=== PATIENT | male | born 1965 | race Caucasian/White ===

== ENCOUNTER 2017-07-12 09:30 | Outpatient (CLI) | payer MEDICARE, MEDICAID ==
--- NOTE | 2017-07-12 12:09 | RAD ---
LEFT KNEE 4 VIEWS: HISTORY: A 52-year-old male with left knee pain and swelling for the last month. COMPARISON: 04/22/17. FINDINGS: Evidence for minimal increased density in the suprapatellar recess. Small bony or calcific linear de nsity posterior to the knee joint region, possibly a small intraarticular body. This is associated w ith some cortical irregularity of the posterior tibial plateau as seen on lateral view. Further eval uation with an MRI is recommended. IMPRESSION: Possible small intraarticular body with some cortical irregularity of the posterior proximal tibial p lateau region as seen on the lateral view with some increased density in the suprapatellar recess, ev idence for some joint effusion. There does appear to be some patchy bone demineralization including the distal femur and patella. Followup MRI is recommended for further assessment. POS: TPC
== END 2017-07-12 09:31 | disposition home or self-care (01) ==
LOC: SCSRAD 09:30
PROVIDERS: ATTEND Nurse Practitioner Family
DX: M25.562 Pain in left knee (principal); M85.80 Other specified disorders of bone density and structure, unspecified site

== ENCOUNTER 2019-12-29 02:22 | Inpatient (IN) | payer MEDICARE, MEDICAID ==
[2019-12-29] MEDS ORDERED: Norepinephrine 4 MG/4 ML VIAL ONE (02:58)
[2019-12-29] MEDS ORDERED: Heparin 10,000 UNITS/1 ML VIAL ONE (03:14)
[2019-12-29] MEDS ORDERED: Clopidogrel Bisulfate 300 MG TAB ONE (03:43)
[2019-12-29] MEDS ORDERED: Midazolam HCl 2 mg/2 ml Vial ONE ×2 (03:48→04:02)
[2019-12-29] MEDS ORDERED: PROPOFOL 20 ML ONE (03:49)
--- NOTE | 2019-12-29 03:52 | HP ---
INDICATION FOR ADMISSION: This is a 54-year-old gentleman with acute what appears to be lateral myocardial infarction, ST-segment elevation. HISTORY OF PRESENT ILLNESS: This is a 54-year-old gentleman who has a history of seizure at age 6 to 7 years old has been doing very well since that time, had no further seizures. He is mentally challenged. He is being taken care of by his sister and around 1130 last night, he awoke with chest pain, had nausea and vomiting. His [id number] took him to the hospital, and while in the hospital, he had another seizure apparently, he aspirated, and then went into ventricular fibrillation, required CPR resuscitation, was started on dopamine, and he also was given I believe, Versed as well as Ativan, was intubated and transferred to our facility. He did have an echocardiogram in 2013 which was normal. There is no prior history of coronary artery disease or cardiac problems in the past. At this time, his EKG as he has been stabilized shows a right-bundle branch block with some nonspecific EKG changes inferiorly. Previously, he did have some ST-segment elevation in lead I and aVL. His laboratory data is relatively unremarkable for any acute OR at this time. PAST MEDICAL HISTORY: Significant for: 1. Seizure disorder. 2. Mental retardation. 3. Hypertension. 4. Hypercholesterolemia. 5. Hypertriglyceridemia. 6. Gastroesophageal reflux disease. 7. He did have an episode of acute renal failure in the past, which has resolved. This was due to his dehydration, and I believe abdominal problems. SOCIAL HISTORY: He lives with sister. He has no alcohol or tobacco abuse. FAMILY HISTORY: Unknown. He is adopted. ALLERGIES: NONE. MEDICATIONS: At home include: 1. Lisinopril. 2. Lipitor. 3. Amlodipine. 4. Aspirin. REVIEW OF SYSTEMS: Not obtainable, but his sister says he has not been complaining of anything, was doing very well, he goes outside, remains active until the episode last night. PHYSICAL EXAMINATION: GENERAL: Reveals a middle-aged gentleman, who is on the ventilator at this time , is unresponsive. VITAL SIGNS: His blood pressure was 85/55, heart rate is at this time 98, shows a right bundle-branch block. HEENT: Shows the head to be normocephalic and atraumatic. He does have an ET tube in place. CHEST: Actually clear to auscultation anteriorly. CARDIOVASCULAR: I did not hear any significant murmurs, heaves, thrills, bruits , or rubs. ABDOMEN: Exam was unremarkable. EXTREMITIES: Show no clubbing, cyanosis, or edema. Pulses are present, somewhat decreased due to hypotension. He has an IO catheter in the left shoulder area. LABORATORY DATA: Shows a hemoglobin of 15.3, WBC of 13.2, platelet count is 329,000. Sodium is 134, potassium 4.3, bicarb is 19, chloride 100, BUN 16, creatinine 1.38, blood sugar was 153. Troponin I is 0.028. AST was 39. An EKG most recently shows a right-bundle branch block with some nonspecific inferior lateral changes. IMPRESSION: 1. Acute, most likely lateral myocardial infarction in a patient who aspirated this evening and then also had ventricular fibrillation and required resuscitation in the emergency room in [place], has been transferred to our facility. He has been taken emergently to the cardiac r&d lab technician for evaluation of the coronary arteries. 2. History of hypertension. He has been on lisinopril and amlodipine. Blood pressure at this time obviously is low, most likely due to myocardial infarction. 3. History of hypertriglyceridemia and hypercholesterolemia. He will continue the Lipitor after the procedure likely. Based on urgency of the situation, we will proceed with cardiac catheterization for evaluation of coronary status, certainly in view of his episode of ventricular fibrillation. Job ID: [id number] MTDD
[2019-12-29] MEDS ORDERED: Fentanyl 100 MCG/2 ML VIAL ONE (04:02)
[2019-12-29] MEDS ORDERED: Ketamine 50 MG/ML (10ML VIAL) ONE (04:03)
[2019-12-29] MEDS ORDERED: Propofol 500 MG/50 ML VIAL ONE (04:03)
[2019-12-29] MEDS ORDERED: Zolpidem Tartrate 5 MG TAB PO PRN (04:35)
[2019-12-29] MEDS ORDERED: Acetaminophen/Codeine 30-300mg Tablet PO PRN (04:35)
[2019-12-29] MEDS ORDERED: Milk Of Magnesia 30 ML UDCUP PO PRN (04:35)
[2019-12-29] MEDS ORDERED: Mag-Al 1200 mg/1200 mg/30 ML UDCUP PO PRN (04:35)
[2019-12-29] MEDS ORDERED: Nitroglycerin 0.4 MG TAB (25 Tab Bottle) SL PRN (04:35)
[2019-12-29] MEDS ORDERED: Clopidogrel Bisulfate 300 MG TAB PO SCH (04:45)
[2019-12-29 05:03] LABS: Actual Bicarbonate (HCO3a) 14.1 mEq/L (22-28); Base Excess (BEa) -14.8 mEq/L (-2.0 to +3.0); CO2 Tension 44.1 mmHg (35.0-45.0); Calcium, Ionized (arterial) 0.99 mmol/L (1.12-1.30); Carboxyhemoglobin (COHb) 0.2 gm% (0.0-3.0); Hemoglobin (Hb) 13.4 g/dL (14.0-18.0); O2 Tension (PaO2), arterial 138.9 mmHg (80.0-100.0); Potassium - ABG Lab 4.02 mmol/L (3.70-5.30)
[2019-12-29] MEDS ORDERED: Fentanyl BOLUS 250 ML IVPB PRN (05:15)
[2019-12-29] MEDS ORDERED: Sodium Bicarb 50 MEQ/50 ML Abboject 8.4% SYRINGE IVP SCH (05:15)
[2019-12-29] MEDS ORDERED: DISCONTINUE PREVIOUS NARCOTIC PAIN MEDICATIONS AND BENZODIAZEPINES FS SCH (05:15)
[2019-12-29] MEDS ORDERED: Morphine 2 MG/ML SYRINGE SLOW IVP PRN (05:15)
[2019-12-29] MEDS ORDERED: Propofol BOLUS 1,000 MG/100 ML VIAL IV PRN (05:15)
[2019-12-29] MEDS ORDERED: fentaNYL Citrate/PF 2,000 MCG in Sodium Chloride 0.9% 60 ML IV SCH (05:15)
[2019-12-29] MEDS ORDERED: Phenylephrine 0.25% Nasal Spray 15 ML BOT EA NARE PRN (05:16)
[2019-12-29 05:34] LABS: ALV-art Gradient 518.975 (0-20); Puncture Site LINE; pH, Arterial 7.12 (7.35-7.45)
[2019-12-29] MEDS: Sodium Chloride 0.9% 1,000 ML IV SCH ×2 (05:54→17:24)
[2019-12-29] MEDS: Propofol 1,000 MG/100 ML VIAL IV PRN ×4 (05:57→18:50)
[2019-12-29] MEDS ORDERED: methylPREDNISolone Sod Succ 40 MG VIAL IVP SCH (06:00)
--- NOTE | 2019-12-29 06:26 | PDOC.HOSPP ---
- Subjective Encounter Date: 12/29/19 Encounter Time: 06:00 Subjective: on vent, is sedated on propofol Hospitalist ROS - Review of Systems ROS unobtainable: due to endotracheal tube - Medication Medications: Active Medications Generic Name Dose Route Start Last Admin Trade Name Freq PRN Reason Stop Dose Admin Sodium Chloride 1,000 mls @ 100 mls/hr 12/29/19 04:45 12/29/19 05:54 Normal Saline 0.9% IV 1,000 mls .Q10H LEON Administration Propofol 1,000 mg 12/29/19 05:15 12/29/19 05:57 Diprivan IV 01/28/20 05:15 1,000 mg INF PRN Administration TO ACHIEVE GOAL RASS Protocol - Exam General Appearance: ill appearing Eye: PERRL, anicteric sclera ENT: no oropharyngeal lesions, dry oral mucosa Neck: supple, no JVD Heart: RRR, no murmur Respiratory: no wheezes, no rales, rhonchi Gastrointestinal: soft, non-tender, non-distended, normal bowel sounds Extremities: no cyanosis, no edema Neurological: cranial nerve grossly intact, no focal deficits Hosp A/P (1) STEMI (ST elevation myocardial infarction) Status: Acute Qualifiers: Involved coronary artery: LAD coronary artery Qualified Code(s): I21.02 - ST elevation (STEMI) myocardial infarction involving left anterior descending coronary artery (2) Acute respiratory failure with hypoxia and hypercapnia Code(s): J96.01 - ACUTE RESPIRATORY FAILURE WITH HYPOXIA; J96.02 - ACUTE RESPIRATORY FAILURE WITH HYPERCAPNIA Status: Acute (3) Seizure disorder Code(s): G40.909 - EPILEPSY, UNSP, NOT INTRACTABLE, WITHOUT STATUS EPILEPTICUS Status: Acute (4) Aspiration pneumonia Code(s): J69.0 - PNEUMONITIS DUE TO INHALATION OF FOOD AND VOMIT Status: Acute Qualifiers: Aspiration pneumonia type: due to regurgitated food Laterality: bilateral (5) Intellectual disability Code(s): F79 - UNSPECIFIED INTELLECTUAL DISABILITIES Status: Chronic (6) Hypothyroidism Code(s): E03.9 - HYPOTHYROIDISM, UNSPECIFIED Status: Chronic Qualifiers: Hypothyroidism type: unspecified Qualified Code(s): E03.9 - Hypothyroidism , unspecified (7) Dyslipidemia Code(s): E78.5 - HYPERLIPIDEMIA, UNSPECIFIED Status: Chronic (8) ZO (acute kidney injury) Code(s): N17.9 - ACUTE KIDNEY FAILURE, UNSPECIFIED Status: Acute - Plan Likely sequence of events per , initially had a seizure, then aspirated, vfib, cpr initiated, cath with stent x2. currently on vent, rate is set at 20/min, tidal volume 500 Had stent to LAD and circumflex is on dopamine and levophed for pressure support, sbp around 110 now (may wean and dc levophed) still has sheath in his right groin, central line on asp, plavix, low dose coreg and lisinopril if BP permits has severe resp acidosis hemostable for now POA is sister is on levaquin, steroids, nebs will add keppra if he gets another seizure, seizure precautions Pulmonary, neurology consultations. May need MRI with contrast when creatinine is stable and extubated for new onset seizure (previous seizure was in his childhood) will f/u
[2019-12-29 06:38] LABS: Base Excess (BEa) -9.6 mEq/L (-2.0 to +3.0); CO2 Tension 34.3 mmHg (35.0-45.0); Calcium, Ionized (arterial) 0.98 mmol/L (1.12-1.30); Carboxyhemoglobin (COHb) 0.5 gm% (0.0-3.0); Hemoglobin (Hb) 13.9 g/dL (14.0-18.0); O2 Tension (PaO2), arterial 60.5 mmHg (80.0-100.0); Potassium - ABG Lab 4.16 mmol/L (3.70-5.30); pH, Arterial 7.29 (7.35-7.45)
[2019-12-29 06:40] LABS: ALV-art Gradient 253.125 (0-20); Puncture Site ALINE
[2019-12-29] MEDS: Levothyroxine Sodium 25 MCG TAB PO SCH (06:48)
[2019-12-29 07:05] LABS: Anion Gap 20 mmol/L (10-20); BUN (Urea Nitrogen) 15 mg/dL (8.4-25.7); Calc. Creatinine Clearance 0 mL/min (70-130); Calcium 7.4 mg/dL (7.8-10.44); Carbon Dioxide 15 mmol/L (22-29); Chloride 103 mmol/L (98-107); Estimated GFR-MDRD 49; Glucose 409 mg/dL (70-105); Potassium 4.1 mmol/L (3.5-5.1); Sodium 134 mmol/L (136-145)
[2019-12-29 07:28] LABS: Troponin I 118.601 ng/mL (< 0.028)
[2019-12-29 07:34] VITALS: BMI 23.1
[2019-12-29] MEDS ORDERED: HumaLOG 300 UNITS/3 ML VIAL SC PRN (07:58)
[2019-12-29] MEDS ORDERED: Dextrose 5% in Water 1,000 ML IV PRN (07:58)
[2019-12-29] MEDS ORDERED: Dextrose 50% Abboject 50 ML SYRINGE SLOW IVP PRN (07:58)
[2019-12-29] MEDS ORDERED: Norepinephrine 8 MG/0.9% NS 250 ML IVPB SCH (08:15)
[2019-12-29] MEDS ORDERED: DOPamine 400 MG/D5W 250 ML 250 ML IVPB SCH (08:15)
[2019-12-29] MEDS: Clopidogrel Bisulfate 75 MG TAB PO SCH (09:00)
[2019-12-29] MEDS: Aspirin Chewable 81 MG TAB PO SCH (09:00)
[2019-12-29] MEDS: Carvedilol 3.125 MG TAB PO SCH ×2 (09:01→17:23)
[2019-12-29] MEDS: Lisinopril 2.5 MG TAB PO SCH (09:01)
[2019-12-29 09:51] LABS: Troponin I 124.867 ng/mL (< 0.028)
--- NOTE | 2019-12-29 09:58 | RAD ---
CHEST 1 VIEW: INDICATION: CCU examination status post interventional cardiology procedure. COMPARISON: Prior chest radiograph dated 05/04/2013. IMPRESSION: The patient is intubated with an ET tube at the thoracic inlet. Gastric catheter projects in the region of the gastric body. There is perihilar fullness and perihilar opacity suspicious for pulmonary vascular congestion and mi ld edema. Heart size is upper limits of normal-appearing. No pleural effusion or pneumothorax is ev ident. POS: BH
--- NOTE | 2019-12-29 10:06 | CON ---
DATE OF CONSULTATION: 12/29/2019 CONSULTING PHYSICIAN: Thao Perez MD REASON FOR CONSULTATION: Acute respiratory failure related to a myocardial infarction. HISTORY OF PRESENT ILLNESS: The patient is a 54-year-old who presented last night with lateral myocardial infarction. He was taken to the center medical and lab director, where he received 2 stents told he was left intubated afterwards. He is having profuse nasal bleeding from his anticoagulation. He initially began having chest pain around 11:30 last night, accompanied by nausea and vomiting. He was taken to the hospital, where he went into ventricular fibrillation. He required CPR and was started on dopamine and Levophed before going to the center medical and lab director. PAST MEDICAL HISTORY: 1. Seizure disorder. 2. Mental retardation. 3. Hypertension. 4. Hyperlipidemia. 5. Gastroesophageal reflux. 6. Previous episode of acute renal failure, which resolved. SOCIAL HISTORY: Nonsmoker. Does not consume alcohol. FAMILY MEDICAL HISTORY: Not known because he is adopted. ALLERGIES: NONE. MEDICATIONS: Prior to admission; 1. Lisinopril. 2. Lipitor. 3. Amlodipine. 4. Aspirin. REVIEW OF SYSTEMS: Cannot be obtained because the patient is currently on mechanical ventilation. PHYSICAL EXAMINATION: VITAL SIGNS: Pulse 128, blood pressure 98/59, O2 saturation 97%, and blood pressure 100/59. HEENT: Unremarkable except for the bleeding coming out of both nostrils. Oropharynx, endotracheal tube in place. NECK: No adenopathy or JVD. LUNGS: Clear to auscultation without wheezing or rhonchi. CARDIAC: S1 and S2, regular without audible murmur. He is tachycardic on dopamine and Levophed. ABDOMEN: Soft and nontender to palpation. EXTREMITIES: No clubbing, cyanosis, or edema. GENITALIA: He has normal male genitalia. IMAGING DATA: His chest x-ray shows an ET tube that is slightly high. I am not sure if it was pushed down further after the x-ray. There is subtle right middle lobe infiltrate. LABORATORY DATA: PH of 7.29, pCO2 of 34, pO2 of 60 that is on SIMV rate 20, tidal volume 500, PEEP 5, pressure support of 10, and FiO2 of 50%. Sodium 134, potassium 4.1, chloride 103, CO2 of 15, BUN 15, creatinine 1.5, and glucose 409. Troponin was 118. ASSESSMENT: 1. Acute myocardial infarction. 2. Acute respiratory failure, requiring mechanical ventilation. 3. Acute renal dysfunction. 4. Profound hyperglycemia with likely underlying diabetes mellitus. PLAN: 1. We may have to get some nasal tampons to stem the bleeding in the nostrils. 2. Bronson diabetes, hyperglycemia orders with an aggressive sliding-scale insulin and Accu-Cheks every 4 hours. 3. I have adjusted the ventilator for the patient's metabolic acidosis. 4. We would hold off on methylprednisolone at the current time. He was started on antibiotics, but I am not sure he actually needs those. The above encompassed 45 minutes of critical care time. Job ID: [id number]
--- NOTE | 2019-12-29 12:18 | PDOC.CPN ---
- Subjective Date: 12/29/19 Time: 09:00 Interval history: The pt seen and examined. No events since the pt was tx to CCU. On Vent with sedation - Objective Allergies/Adverse Reactions: Allergies Allergy/AdvReac Type Severity Reaction Status Date / Time No Known Drug Allergies Allergy Unknown Verified 05/22/13 11:28 Visit Medications: Current Medications Acetaminophen/Codeine Phosphate (Tylenol #3) 1 tab PO Q4H PRN PRN Reason: Mild Pain (1-3) Al Hydroxide/Mg Hydroxide (Maalox) 30 ml PO Q3H PRN PRN Reason: Indigestion Albuterol/Ipratropium (Duoneb) 3 ml NEB [id number] [facility] Last Admin: 12/29/19 06:58 Dose: 3 ml Aspirin (Aspirin Chewable) 81 mg PO DAILY [facility] Last Admin: 12/29/19 09:00 Dose: 81 mg Atorvastatin Calcium (Lipitor) 80 mg PO HS [facility] Carvedilol (Coreg) 3.125 mg PO BID-WM [facility] Last Admin: 12/29/19 09:01 Dose: Not Given Clopidogrel Bisulfate (Plavix) 75 mg PO DAILY [facility] Last Admin: 12/29/19 09:00 Dose: 75 mg Dextrose/Water (Dextrose 50%) 25 gm SLOW IVP PRN PRN PRN Reason: Hypoglycemia Glucagon (Glucagon) 1 mg IM PRN PRN PRN Reason: Hypoglycemia Sodium Chloride (Normal Saline 0.9%) 1,000 mls @ 100 mls/hr IV .Q10H [facility] Last Admin: 12/29/19 05:54 Dose: 1,000 mls Fentanyl Citrate 2,000 mcg/ (Sodium Chloride) 100 mls @ 0 mls/hr IV INF LEON; Protocol Stop: 01/28/20 05:15 Fentanyl Citrate (Fentanyl Bolus) 250 mls @ 0 mls/hr IVPB PRN PRN PRN Reason: Breakthrough pain/agitation Stop: 01/28/20 05:15 Levofloxacin 500 mg/ Device 100 mls @ 100 mls/hr IVPB Q24HR [facility] Last Admin: 12/29/19 06:48 Dose: 100 mls Dextrose/Water (D5w) 1,000 mls @ 0 mls/hr IV .Q0M PRN PRN Reason: Hypoglycemia Dopamine HCl/Dextrose (Dopamine 400 Mg/D5w 250 Ml) 250 mls @ 0 mls/hr IVPB INF [facility] Norepinephrine Bitartrate (Levophed) 250 mls @ 0 mls/hr IVPB INF [facility] Insulin Human Lispro (Humalog) 0 units SC .AGGRESSIVE SLIDING PRN PRN Reason: Aggressive Correctional Scale Levothyroxine Sodium (Synthroid) 25 mcg PO 0600 [facility] Last Admin: 12/29/19 06:48 Dose: 25 mcg Lisinopril (Zestril) 2.5 mg PO DAILY [facility] Last Admin: 12/29/19 09:01 Dose: Not Given Lorazepam (Ativan) 2 mg SLOW IVP Q1H PRN PRN Reason: Breakthrough agitation Stop: 01/28/20 05:15 Magnesium Hydroxide (Milk Of Magnesium) 30 ml PO Q12H PRN PRN Reason: Constipation Morphine Sulfate (Morphine) 2 mg SLOW IVP Q1H PRN PRN Reason: BREAKTHROUGH PAIN/Agitation Stop: 01/28/20 05:15 Nitroglycerin (Nitrostat) 0.4 mg SL Q5MIN PRN PRN Reason: Chest Pain Discontinue Previous Narcotic Pain Medications And Benzodiazepines 1 each FS .ONE [facility] Stop: 01/28/20 05:15 Phenylephrine HCl (Omega-Synephrine 0.25% Nasal [place]) 0 ml EA NARE Q4H PRN PRN Reason: NASAL BLEEDING Propofol (Diprivan) 1,000 mg IV INF PRN; Protocol PRN Reason: TO ACHIEVE GOAL RASS Stop: 01/28/20 05:15 Last Admin: 12/29/19 10:21 Dose: 1,000 mg Propofol (Diprivan Bolus) 20 mg IV Q5MIN PRN PRN Reason: BREAKTHROUGH AGITATION Stop: 01/28/20 05:15 Sodium Chloride (Flush - Normal Saline) 10 ml IVF Q12HR [facility] Last Admin: 12/29/19 09:02 Dose: 10 ml Sodium Chloride (Flush - Normal Saline) 10 ml IVF PRN PRN PRN Reason: Saline Flush Vital Signs & Weight: Vital Signs Temp Pulse Resp BP Pulse Ox 12/29/19 10:28 86 108/60 12/29/19 09:01 113 H 107/61 12/29/19 08:00 98.2 F 24 H 12/29/19 07:07 113 H 107/61 12/29/19 05:00 20 100 12/29/19 04:35 94.4 F L Weight 165 lb 9.074 oz - Physical Exam HEENT: mucus membranes moist Cardiac: regular rate and rhythm, S1/S2 Lungs: decreased breath sounds Extremities: no edema - Labs Result Diagrams: 12/30/19 04:46 12/30/19 04:46 Troponin/CKMB Troponin I 124.867 ng/mL (< 0.028) H* 12/29/19 08:42 - Telemetry Sinus rhythms and dysrhythmias: sinus tachycardia - Assessment/Plan Assessment/Plan: 1. s/p Cardiac arrest - 2. CAD with s/p LHC on 12/29/2019 with NICOLA x 2 in prox LAD and prox 1st Diag; 50 % stenosis in mid RCA and EF > 60% - will start Coreg, Lisinopril; on Statin, ASA and Plavix; Echo was done today and the result is pending 3. Seizure 4. HTN - stable with dopamine and Levophed drip 5. HLD - on Statin 6. DM type 2 7. Hypothyroidism 8. ZO - on NS@100ml/h 9. Intellectual disability 10. possible aspiration PNA - on ABX 11. Epistaxis - nasal packing MAR reviewed pt. s/p Stents this AM. Stable at this time. I agree with the A/P by the PREMIUM AUDITOR. jarad
[2019-12-29] MEDS: Lorazepam 2 MG/ML VIAL SLOW IVP PRN ×3 (13:56→20:45)
[2019-12-29 15:12] LABS: Troponin I Greater than 45.000 ng/mL (< 0.028)
[2019-12-29] MEDS: Atorvastatin Calcium 40 MG TAB PO SCH (20:45)
[2019-12-30] MEDS ORDERED: Acetaminophen 325 MG TAB PO PRN (00:08)
[2019-12-30] MEDS: Propofol 1,000 MG/100 ML VIAL IV PRN ×4 (00:19→17:58)
[2019-12-30] MEDS: Sodium Chloride 0.9% 1,000 ML IV SCH (00:20)
[2019-12-30 04:56] LABS: #Lymphocytes 1.2 thou/uL (1.20-3.40); #Monocytes 0.7 thou/uL (0.11-0.59); #Neutrophils 7.2 thou/uL (1.40-6.50); %Basophils 0.3 % (0.0-1.0); %Eosinophils 0.2 % (0.0-10.0); %Lymphocytes 13.3 % (21.0-51.0); %Monocytes 7.5 % (0.0-10.0); %Neutrophils 78.7 % (42.0-75.0); Hemoglobin 16.2 g/dL (14.0-18.0); Mean Corpuscular HGB CONC 36.1 g/dL (32.0-36.0); Mean Corpuscular Hemoglobin 29.5 pg (27.0-31.0); Mean Corpuscular Volume 81.8 fL (78.0-98.0); Mean Platelet Volume 7.1 fL (7.4-10.4); Platelet Count 167 thou/uL (130-400); RBC Distribution Width 12.3 % (11.5-14.5); Red Blood Cell (RBC) Count 5.49 mill/uL (4.70-6.10); White Blood Cell (WBC) Count 9.2 thou/uL (4.8-10.8)
[2019-12-30] MEDS: Levothyroxine Sodium 25 MCG TAB PO SCH (05:07)
[2019-12-30 05:31] LABS: ALT (SGPT) 243 U/L (8-55); AST (SGOT) 192 U/L (5-34); Albumin 3.9 g/dL (3.5-5.0); Alkaline Phosphatase 54 U/L (40-110); Anion Gap 20 mmol/L (10-20); BUN (Urea Nitrogen) 11 mg/dL (8.4-25.7); Bilirubin, Total 0.8 mg/dL (0.2-1.2); Calc. Creatinine Clearance 81 mL/min (70-130); Calcium 8.5 mg/dL (7.8-10.44); Carbon Dioxide 15 mmol/L (22-29); Cardiac Risk 13.2 (Less than 4.5); Chloride 110 mmol/L (98-107); Cholesterol 251 mg/dl (< 200 Desired); Estimated GFR-MDRD 68; Glucose 131 mg/dL (70-105); HDL Cholesterol 19 mg/dL (>60 Neg Risk); Potassium 3.6 mmol/L (3.5-5.1); Protein, Total 6.9 g/dL (6.0-8.3); Sodium 141 mmol/L (136-145)
[2019-12-30 05:39] LABS: Triglycerides 1820 mg/dL (Less than 150)
--- NOTE | 2019-12-30 07:05 | RAD ---
CHEST 1 VIEW: INDICATION: History of pneumonia. COMPARISON: Prior exam dated 12/29/2019. IMPRESSION: The patient remains intubated with gastric catheter placement. There is improvement in the perihilar airspace opacities. NO pleural effusion or pneumothorax is evident. POS: BH
[2019-12-30 07:50] LABS: Actual Bicarbonate (HCO3a) 20.2 mEq/L (22-28); Base Excess (BEa) -0.9 mEq/L (-2.0 to +3.0); Calcium, Ionized (arterial) 1.11 mmol/L (1.12-1.30); Carboxyhemoglobin (COHb) 0.4 gm% (0.0-3.0); Hemoglobin (Hb) 10.6 g/dL (14.0-18.0); O2 Tension (PaO2), arterial 75.3 mmHg (80.0-100.0)
[2019-12-30] MEDS ORDERED: Dextrose 50% Abboject 50 ML SYRINGE SLOW IVP PRN (07:51)
[2019-12-30] MEDS ORDERED: Dextrose 5% in Water 1,000 ML IV PRN (07:51)
[2019-12-30] MEDS ORDERED: Insulin Regular 300 UNITS/3 ML VIAL SC PRN (07:51)
[2019-12-30 07:52] LABS: pH, Arterial 7.56 (7.35-7.45)
[2019-12-30 07:53] LABS: ALV-art Gradient 180.775 (0-20); CO2 Tension 23.3 mmHg (35.0-45.0); Puncture Site RR
[2019-12-30] MEDS ORDERED: Sodium Bicarbonate 70 MEQ in Sodium Chloride 0.45% 1,000 ML IV SCH (08:00)
--- NOTE | 2019-12-30 08:21 | PRG ---
DATE OF SERVICE: 12/30/2019 TIME SPENT: 35 minutes critical care time. SUBJECTIVE: The patient remains intubated on mechanical ventilation. There had been no acute changes overnight. OBJECTIVE: VITAL SIGNS: Temperature is 99.4, pulse 113, blood pressure 137/90, O2 saturation 100%. 24-hour intake 3178, output 4810. HEENT: Remarkable for blood around nasopharynx. NECK: No adenopathy or JVD. CHEST: Clear. CARDIAC: S1 and S2. Slightly tachycardic. ABDOMEN: Soft and nontender. EXTREMITIES: No clubbing, cyanosis, or edema. LABORATORY DATA: White count 9.2, hematocrit 44.9, and platelet count 167. Sodium 141, potassium 3.6, chloride 110, CO2 of 15, BUN 11, creatinine 1.1, glucose 131. Troponin 45. Chest x-ray shows no changes. ABG pending. ASSESSMENT: 1. Status post myocardial infarction. 2. Acute respiratory failure with clear chest x-ray. 3. Status post nasal bleeding, I removed his nasal tampons today. PLAN: Check ABG. Consider extubating if it looks okay. I am somewhat concerned about metabolic acidosis. This probably needs to be corrected somewhat before aggressive weaning. Job ID: [id number]
[2019-12-30] MEDS: cefTRIAXone\\ROCEPHIN 1 GM in Sodium Chloride 0.9% 100 ML IVPB SCH (09:38)
[2019-12-30] MEDS: Sodium Chloride 0.45% 1,000 ML IV SCH ×2 (09:40→22:59)
[2019-12-30] MEDS: Lisinopril 2.5 MG TAB PO SCH (09:40)
[2019-12-30] MEDS: Clopidogrel Bisulfate 75 MG TAB PO SCH (09:40)
[2019-12-30] MEDS: Aspirin Chewable 81 MG TAB PO SCH (09:41)
[2019-12-30] MEDS: Carvedilol 6.25 MG TAB PO SCH ×2 (09:41→22:59)
[2019-12-30] MEDS: Carvedilol 3.125 MG TAB PO SCH (09:53)
--- NOTE | 2019-12-30 10:42 | PDOC.HOSPP ---
- Subjective Encounter Date: 12/30/19 Encounter Time: 10:40 Subjective: Mr. Sarmiento was seen today in follow-up of acute NE. He is intubated. He is awake and alert. He follows commands. - Objective Vital Signs & Weight: Vital Signs (12 hours) Temp Pulse Resp BP Pulse Ox 12/30/19 10:00 12 12/30/19 09:41 135/93 H 12/30/19 09:40 108 H 135/93 H 12/30/19 08:00 99.7 F H 24 H 12/30/19 06:50 116 H 137/90 12/30/19 06:48 116 H 24 H 100 12/30/19 02:00 99.4 F 12/29/19 23:23 106 H 24 H 100 Weight Admit Weight 165 lb Weight 165 lb 9.074 oz Most Recent Monitor Data Heart Rate from ECG 105 NIBP 132/92 NIBP BP-Mean 105 Respiration from ECG 8 SpO2 100 I&O: 12/29/19 12/30/19 12/31/19 06:59 06:59 06:59 Intake Total 209.6 3178.6 45 Output Total 480 4810 530 Balance -270.4 -1631.4 -485 Result Diagrams: 12/30/19 04:46 12/30/19 04:46 Additional Labs: Accuchecks 12/30/19 12/30/19 12/29/19 07:35 00:22 20:49 POC Glucose 154 H 156 H 163 H 12/29/19 12/29/19 16:12 12:09 POC Glucose 190 H 223 H Hospitalist ROS - Medication Medications: Active Medications Generic Name Dose Route Start Last Admin Trade Name Freq PRN Reason Stop Dose Admin Acetaminophen 650 mg 12/30/19 00:08 12/30/19 00:18 Tylenol PO 650 mg Q6H PRN Administration Headache/Fever>100 or Pain1-3 Acetaminophen/Codeine Phosphate 1 tab 12/29/19 04:35 12/29/19 20:45 Tylenol #3 PO 1 tab Q4H PRN Administration Mild Pain (1-3) Albuterol/Ipratropium 3 ml 12/29/19 07:00 12/30/19 06:48 Duoneb NEB 3 ml [id number] LEON Administration Aspirin 81 mg 12/29/19 09:00 12/30/19 09:41 Aspirin Chewable PO 81 mg DAILY LEON Administration Atorvastatin Calcium 80 mg 12/29/19 21:00 12/29/19 20:45 Lipitor PO 80 mg HS LEON Administration Carvedilol 6.25 mg 12/30/19 09:00 12/30/19 09:41 Coreg PO 6.25 mg BID LEON Administration Clopidogrel Bisulfate 75 mg 12/29/19 09:00 12/30/19 09:40 Plavix PO 75 mg DAILY LEON Administration Fentanyl Citrate 2,000 mcg/ 100 mls @ 0 mls/hr 12/29/19 05:15 12/29/19 21:13 Sodium Chloride IV 01/28/20 05:15 100 mls INF LEON Administration Protocol Per Protocol Ceftriaxone Sodium 1 gm/ 100 mls @ 200 mls/hr 12/30/19 08:00 12/30/19 09:38 Sodium Chloride IVPB 100 mls Q24HR LEON Administration Sodium Chloride 1,000 mls @ 75 mls/hr 12/30/19 08:15 12/30/19 09:40 1/2 Normal Saline IV 1,000 mls .[id number] LEON Administration Levothyroxine Sodium 25 mcg 12/29/19 06:00 12/30/19 05:07 Synthroid PO 25 mcg 0600 LEON Administration Lisinopril 2.5 mg 12/29/19 09:00 12/30/19 09:40 Zestril PO 2.5 mg DAILY LEON Administration Lorazepam 2 mg 12/29/19 05:15 12/29/19 20:45 Ativan SLOW IVP 01/28/20 05:15 2 mg Q1H PRN Administration Breakthrough agitation Propofol 1,000 mg 12/29/19 05:15 12/30/19 09:48 Diprivan IV 01/28/20 05:15 1,000 mg INF PRN Administration TO ACHIEVE GOAL RASS Protocol Sodium Chloride 10 ml 12/29/19 09:00 12/30/19 09:41 Flush - Normal Saline IVF 10 ml Q12HR LEON Administration - Exam Eye: PERRL Heart: RRR, no murmur, no gallops, no rubs, normal peripheral pulses Respiratory: CTAB, no wheezes, no rales, no ronchi, normal chest expansion, no tachypnea Gastrointestinal: soft, non-tender, non-distended, normal bowel sounds, no palpable masses, no hepatomegaly Extremities: no cyanosis, no edema Hosp A/P (1) Aspiration pneumonia Code(s): J69.0 - PNEUMONITIS DUE TO INHALATION OF FOOD AND VOMIT Status: Acute Qualifiers: Aspiration pneumonia type: due to regurgitated food Laterality: bilateral (2) STEMI (ST elevation myocardial infarction) Status: Acute Qualifiers: Involved coronary artery: LAD coronary artery Qualified Code(s): I21.02 - ST elevation (STEMI) myocardial infarction involving left anterior descending coronary artery (3) Hypothyroidism Code(s): E03.9 - HYPOTHYROIDISM, UNSPECIFIED Status: Chronic Qualifiers: Hypothyroidism type: unspecified Qualified Code(s): E03.9 - Hypothyroidism , unspecified (4) Intellectual disability Code(s): F79 - UNSPECIFIED INTELLECTUAL DISABILITIES Status: Chronic (5) Dyslipidemia Code(s): E78.5 - HYPERLIPIDEMIA, UNSPECIFIED Status: Chronic - Plan * STEMI- patient is post primary PCI * Continue Carvediolol, aspirin, lipitor * Echo has been ordered to assess his EF * Seizure- known history of seizure, this may have been cardiac in origin.-will place him on seizure precautions, and hold off on antiepileptic medications * Aspiration pneumonia- continue Rocephin * Hypothyroidism- will check his TFT's in the AM and re-start Synthroid * PCCM consulted for Vent management
--- NOTE | 2019-12-30 13:11 | PDOC.CPN ---
- Subjective Date: 12/30/19 Time: 13:21 Interval history: The pt seen and examined. No overnight events. He is still on Vent with sedation - Objective Allergies/Adverse Reactions: Allergies Allergy/AdvReac Type Severity Reaction Status Date / Time No Known Drug Allergies Allergy Unknown Verified 05/22/13 11:28 Visit Medications: Current Medications Acetaminophen (Tylenol) 650 mg PO Q6H PRN PRN Reason: Headache/Fever>100 or Pain1-3 Last Admin: 12/30/19 00:18 Dose: 650 mg Acetaminophen/Codeine Phosphate (Tylenol #3) 1 tab PO Q4H PRN PRN Reason: Mild Pain (1-3) Last Admin: 12/29/19 20:45 Dose: 1 tab Al Hydroxide/Mg Hydroxide (Maalox) 30 ml PO Q3H PRN PRN Reason: Indigestion Albuterol/Ipratropium (Duoneb) 3 ml NEB [id number] LEON Last Admin: 12/30/19 12:29 Dose: 3 ml Aspirin (Aspirin Chewable) 81 mg PO DAILY [facility] Last Admin: 12/30/19 09:41 Dose: 81 mg Atorvastatin Calcium (Lipitor) 80 mg PO HS [facility] Last Admin: 12/29/19 20:45 Dose: 80 mg Carvedilol (Coreg) 6.25 mg PO BID [facility] Last Admin: 12/30/19 09:41 Dose: 6.25 mg Clopidogrel Bisulfate (Plavix) 75 mg PO DAILY [facility] Last Admin: 12/30/19 09:40 Dose: 75 mg Dextrose/Water (Dextrose 50%) 25 gm SLOW IVP PRN PRN PRN Reason: Hypoglycemia Glucagon (Glucagon) 1 mg IM PRN PRN PRN Reason: Hypoglycemia Fentanyl Citrate 2,000 mcg/ (Sodium Chloride) 100 mls @ 0 mls/hr IV INF LEON; Protocol Stop: 01/28/20 05:15 Last Admin: 12/29/19 21:13 Dose: 100 mls Fentanyl Citrate (Fentanyl Bolus) 250 mls @ 0 mls/hr IVPB PRN PRN PRN Reason: Breakthrough pain/agitation Stop: 01/28/20 05:15 Dopamine HCl/Dextrose (Dopamine 400 Mg/D5w 250 Ml) 250 mls @ 0 mls/hr IVPB INF LEON Norepinephrine Bitartrate (Levophed) 250 mls @ 0 mls/hr IVPB INF LEON Ceftriaxone Sodium 1 gm/ (Sodium Chloride) 100 mls @ 200 mls/hr IVPB Q24HR [facility] Last Admin: 12/30/19 09:38 Dose: 100 mls Dextrose/Water (D5w) 1,000 mls @ 0 mls/hr IV .Q0M PRN PRN Reason: Hypoglycemia Sodium Chloride (1/2 Normal Saline) 1,000 mls @ 75 mls/hr IV .[id number] [facility] Last Admin: 12/30/19 09:40 Dose: 1,000 mls Insulin Human Regular (Humulin R) 0 units SC .MILD SLIDING SCALE PRN PRN Reason: Mild Correctional Scale Levothyroxine Sodium (Synthroid) 25 mcg PO 0600 [facility] Last Admin: 12/30/19 05:07 Dose: 25 mcg Lisinopril (Zestril) 2.5 mg PO DAILY [facility] Last Admin: 12/30/19 09:40 Dose: 2.5 mg Lorazepam (Ativan) 2 mg SLOW IVP Q1H PRN PRN Reason: Breakthrough agitation Stop: 01/28/20 05:15 Last Admin: 12/29/19 20:45 Dose: 2 mg Magnesium Hydroxide (Milk Of Magnesium) 30 ml PO Q12H PRN PRN Reason: Constipation Morphine Sulfate (Morphine) 2 mg SLOW IVP Q1H PRN PRN Reason: BREAKTHROUGH PAIN/Agitation Stop: 01/28/20 05:15 Nitroglycerin (Nitrostat) 0.4 mg SL Q5MIN PRN PRN Reason: Chest Pain Discontinue Previous Narcotic Pain Medications And Benzodiazepines 1 each FS .ONE [facility] Stop: 01/28/20 05:15 Pantoprazole Sodium (Protonix) 40 mg PO 1400 [facility] Phenylephrine HCl (Omega-Synephrine 0.25% Nasal [place]) 0 ml EA NARE Q4H PRN PRN Reason: NASAL BLEEDING Propofol (Diprivan) 1,000 mg IV INF PRN; Protocol PRN Reason: TO ACHIEVE GOAL RASS Stop: 01/28/20 05:15 Last Admin: 12/30/19 09:48 Dose: 1,000 mg Propofol (Diprivan Bolus) 20 mg IV Q5MIN PRN PRN Reason: BREAKTHROUGH AGITATION Stop: 01/28/20 05:15 Sodium Chloride (Flush - Normal Saline) 10 ml IVF Q12HR [facility] Last Admin: 12/30/19 09:41 Dose: 10 ml Sodium Chloride (Flush - Normal Saline) 10 ml IVF PRN PRN PRN Reason: Saline Flush Vital Signs & Weight: Vital Signs Temp Pulse Resp BP Pulse Ox 12/30/19 12:29 85 10 L 100 12/30/19 10:48 99 132/92 H 12/30/19 10:00 12 12/30/19 09:41 135/93 H 12/30/19 09:40 108 H 135/93 H 12/30/19 08:00 99.7 F H 24 H 100 12/30/19 06:50 116 H 137/90 12/30/19 06:48 116 H 24 H 100 12/30/19 02:00 99.4 F Admit Weight 165 lb Weight 165 lb 9.074 oz - Physical Exam Cardiac: regular rate and rhythm, S1/S2 Lungs: decreased breath sounds Extremities: no edema - Labs Result Diagrams: 12/30/19 04:46 12/30/19 04:46 Troponin/CKMB Troponin I Greater than 45.000 ng/mL (< 0.028) H* 12/29/19 14:08 - Telemetry Sinus rhythms and dysrhythmias: sinus tachycardia - Assessment/Plan Assessment/Plan: 1. s/p Cardiac arrest with intubation 2. CAD with s/p LHC on 12/29/2019 with NICOLA x 2 in prox LAD and prox 1st Diag; 50 % stenosis in mid RCA and EF > 60% - On Coreg, Lisinopril; on Statin, ASA and Plavix; 3. Seizure 4. HTN - will increase Coreg to 6.25mg BID 5. HLD - on Statin 6. DM type 2 - per family, the pt was on some DM med in past; will check HgbA1c 7. Hypothyroidism 8. ZO - on NS@100ml/h 9. Intellectual disability 10. possible aspiration PNA - on ABX 11. Epistaxis - nasal packing 12. Elevated LFT MAR reviewed * Echo on 12/29/2019 with EF 60-65%, hypokinetic lateral wall, trace MR and TR Pt. seen and eval. by me. Chest clear. RRR. No edema. The troponin I is extremely elevated but the EF does not indicate a massive NC and the EKG does not have significant Q-waves. This may be a lab error or some other cause of this significant elevation. Bashir repeat T.I. He is stable from a cardiac standpoint. i agree with the A/P by the MANAGER DEVELOPMENT. michael
[2019-12-30] MEDS: Atorvastatin Calcium 40 MG TAB PO SCH (22:59)
[2019-12-31 04:53] LABS: Hemoglobin A1c 6.4 % (4.0-6.0)
[2019-12-31 05:07] LABS: Anion Gap 22 mmol/L (10-20); BUN (Urea Nitrogen) 11 mg/dL (8.4-25.7); Calc. Creatinine Clearance 81 mL/min (70-130); Calcium 8.4 mg/dL (7.8-10.44); Carbon Dioxide 16 mmol/L (22-29); Chloride 106 mmol/L (98-107); Estimated GFR-MDRD 67; Glucose 124 mg/dL (70-105); Sodium 140 mmol/L (136-145)
[2019-12-31 05:21] LABS: #Basophils 0.1 thou/uL (0.0-0.2); #Eosinphils 0.3 thou/uL (0.0-0.7); #Monocytes 0.9 thou/uL (0.11-0.59); %Basophils 0.7 % (0.0-1.0); %Eosinophils 2.7 % (0.0-10.0); %Lymphocytes 19.7 % (21.0-51.0); %Neutrophils 67.9 % (42.0-75.0); Hemoglobin 9.9 g/dL (14.0-18.0); Mean Corpuscular HGB CONC 35.2 g/dL (32.0-36.0); Mean Corpuscular Hemoglobin 29.1 pg (27.0-31.0); Mean Corpuscular Volume 82.9 fL (78.0-98.0); Mean Platelet Volume 6.9 fL (7.4-10.4); Platelet Count 196 thou/uL (130-400); RBC Distribution Width 11.8 % (11.5-14.5); Red Blood Cell (RBC) Count 3.38 mill/uL (4.70-6.10); White Blood Cell (WBC) Count 10.4 thou/uL (4.8-10.8)
[2019-12-31 05:29] LABS: Free T4 (Free Thyroxine) 0.45 ng/dL (0.70-1.48); Thyroid Stimulating Hormone 20.9389 uIU/mL (0.35-4.94)
[2019-12-31] MEDS: Levothyroxine Sodium 25 MCG TAB PO SCH (06:48)
--- NOTE | 2019-12-31 07:51 | RAD ---
EXAM: Single view of the chest HISTORY: Pneumonia COMPARISON: 12/30/2019 FINDINGS: Single view of the chest shows a normal sized cardiomediastinal silhouette. Lines and tube s are unchanged in position. There is no evidence of consolidation, mass, or pleural effusion. The bones are unremarkable. IMPRESSION: No evidence of acute cardiopulmonary disease
--- NOTE | 2019-12-31 07:56 | EKG ---
Test Reason : STAT Blood Pressure : / mmHG Vent. Rate : 109 BPM Atrial Rate : 109 BPM P-R Int : 144 ms QRS Dur : 126 ms QT Int : 378 ms P-R-T Axes : 026 090 -26 degrees QTc Int : 509 ms Sinus tachycardia Right bundle branch block T wave abnormality, consider inferior ischemia Abnormal ECG No previous ECGs available Confirmed by DR. James BONNER ([id number]) on 12/31/2019 7:55:45 AM Referred By: RANDELL MARINO Confirmed By:DR. James BONNER
[2019-12-31] MEDS: cefTRIAXone\\ROCEPHIN 1 GM in Sodium Chloride 0.9% 100 ML IVPB SCH (07:57)
--- NOTE | 2019-12-31 08:00 | PDOC.HOSPP ---
- Objective Vital Signs & Weight: Vital Signs (12 hours) Temp Pulse Resp BP Pulse Ox 12/31/19 07:35 12 98 12/31/19 06:40 92 19 100 12/31/19 06:37 82 172/78 H 12/31/19 04:00 99.1 F 12/30/19 23:22 97 11 L 100 12/30/19 22:59 110/75 12/30/19 20:00 14 Weight Admit Weight 165 lb Weight 165 lb 9.074 oz Most Recent Monitor Data Heart Rate from ECG 110 NIBP 140/86 NIBP BP-Mean 104 Respiration from ECG 13 SpO2 99 I&O: 12/30/19 12/31/19 01/01/20 06:59 06:59 06:59 Intake Total 3178.6 3038.1 Output Total 4810 2163 Balance -1631.4 875.1 Result Diagrams: 12/31/19 05:06 12/31/19 03:42 Additional Labs: Accuchecks 12/30/19 12/30/19 16:21 11:55 POC Glucose 129 H 137 H Hospitalist ROS - Medication Medications: Active Medications Generic Name Dose Route Start Last Admin Trade Name Freq PRN Reason Stop Dose Admin Acetaminophen 650 mg 12/30/19 00:08 12/30/19 00:18 Tylenol PO 650 mg Q6H PRN Administration Headache/Fever>100 or Pain1-3 Acetaminophen/Codeine Phosphate 1 tab 12/29/19 04:35 12/29/19 20:45 Tylenol #3 PO 1 tab Q4H PRN Administration Mild Pain (1-3) Albuterol/Ipratropium 3 ml 12/29/19 07:00 12/31/19 06:40 Duoneb NEB 3 ml [id number] LEON Administration Aspirin 81 mg 12/29/19 09:00 12/30/19 09:41 Aspirin Chewable PO 81 mg DAILY LEON Administration Atorvastatin Calcium 80 mg 12/29/19 21:00 12/30/19 22:59 Lipitor PO 80 mg HS LEON Administration Carvedilol 6.25 mg 12/30/19 09:00 12/30/19 22:59 Coreg PO 6.25 mg BID LEON Administration Clopidogrel Bisulfate 75 mg 12/29/19 09:00 12/30/19 09:40 Plavix PO 75 mg DAILY LEON Administration Fentanyl Citrate 2,000 mcg/ 100 mls @ 0 mls/hr 12/29/19 05:15 12/29/19 21:13 Sodium Chloride IV 01/28/20 05:15 100 mls INF LEON Administration Protocol Per Protocol Ceftriaxone Sodium 1 gm/ 100 mls @ 200 mls/hr 12/30/19 08:00 12/30/19 09:38 Sodium Chloride IVPB 100 mls Q24HR LEON Administration Sodium Chloride 1,000 mls @ 75 mls/hr 12/30/19 08:15 12/30/19 22:59 1/2 Normal Saline IV 1,000 mls .[id number] LEON Administration Levothyroxine Sodium 25 mcg 12/29/19 06:00 12/31/19 06:48 Synthroid PO 25 mcg 0600 LEON Administration Lisinopril 2.5 mg 12/29/19 09:00 12/30/19 09:40 Zestril PO 2.5 mg DAILY LEON Administration Lorazepam 2 mg 12/29/19 05:15 12/29/19 20:45 Ativan SLOW IVP 01/28/20 05:15 2 mg Q1H PRN Administration Breakthrough agitation Pantoprazole Sodium 40 mg 12/30/19 14:00 12/30/19 13:42 Protonix PO 40 mg 1400 LEON Administration Propofol 1,000 mg 12/29/19 05:15 12/30/19 17:58 Diprivan IV 01/28/20 05:15 1,000 mg INF PRN Administration TO ACHIEVE GOAL RASS Protocol Sodium Chloride 10 ml 12/29/19 09:00 12/30/19 23:00 Flush - Normal Saline IVF 10 ml Q12HR LEON Administration Hosp A/P (1) Aspiration pneumonia Code(s): J69.0 - PNEUMONITIS DUE TO INHALATION OF FOOD AND VOMIT Status: Acute Qualifiers: Aspiration pneumonia type: due to regurgitated food Laterality: bilateral (2) STEMI (ST elevation myocardial infarction) Status: Acute Qualifiers: Involved coronary artery: LAD coronary artery Qualified Code(s): I21.02 - ST elevation (STEMI) myocardial infarction involving left anterior descending coronary artery (3) Hypothyroidism Code(s): E03.9 - HYPOTHYROIDISM, UNSPECIFIED Status: Chronic Qualifiers: Hypothyroidism type: unspecified Qualified Code(s): E03.9 - Hypothyroidism , unspecified (4) Intellectual disability Code(s): F79 - UNSPECIFIED INTELLECTUAL DISABILITIES Status: Chronic (5) Dyslipidemia Code(s): E78.5 - HYPERLIPIDEMIA, UNSPECIFIED Status: Chronic - Plan * STEMI- patient is post primary PCI * Continue Carvediolol, aspirin, lipitor * Echo has been ordered to assess his EF * Seizure- known history of seizure, this may have been cardiac in origin.-will place him on seizure precautions, and hold off on antiepileptic medications * Aspiration pneumonia- continue Rocephin * Hypothyroidism- will check his TFT's in the AM and re-start Synthroid * PCCM consulted for Vent management
[2019-12-31] MEDS ORDERED: DC Sedation Protocol FS ONE (08:02)
[2019-12-31] MEDS: Aspirin Chewable 81 MG TAB PO SCH (08:04)
[2019-12-31] MEDS: Lisinopril 2.5 MG TAB PO SCH (08:04)
[2019-12-31] MEDS: Clopidogrel Bisulfate 75 MG TAB PO SCH (08:05)
[2019-12-31] MEDS: Carvedilol 6.25 MG TAB PO SCH ×2 (08:05→20:05)
[2019-12-31 08:15] LABS: Actual Bicarbonate (HCO3a) 23.6 mEq/L (22-28); Base Excess (BEa) -0.5 mEq/L (-2.0 to +3.0); CO2 Tension 36.7 mmHg (35.0-45.0); Calcium, Ionized (arterial) 1.13 mmol/L (1.12-1.30); Carboxyhemoglobin (COHb) 0.2 gm% (0.0-3.0); O2 Tension (PaO2), arterial 100.9 mmHg (80.0-100.0); Potassium - ABG Lab 4.25 mmol/L (3.70-5.30); pH, Arterial 7.43 (7.35-7.45)
[2019-12-31 08:17] LABS: Puncture Site LB
[2019-12-31 08:18] LABS: ALV-art Gradient 138.425 (0-20)
--- NOTE | 2019-12-31 08:26 | PRG ---
DATE OF SERVICE: 12/31/2019 35 minutes of critical care time. SUBJECTIVE: The patient remains intubated on mechanical ventilation. Sedation has been turned off. He is wide awake. He wants to get the tube out. OBJECTIVE: VITAL SIGNS: Temperature 99.1, pulse 110, blood pressure 140/86. HEENT: Unremarkable. NECK: No JVD. CHEST: Clear. CARDIAC: S1 and S2. Regular. ABDOMEN: Soft. EXTREMITIES: No edema. LABORATORY DATA: ABG; pH 7.56, pCO2 of 23, pO2 of 75. White blood cell count 10, hematocrit 28, and platelet count 196. Sodium 140, potassium 4, chloride 106, CO2 of 16, BUN 11, creatinine 1.1, glucose 124. TSH is 20.9. ASSESSMENT: 1. Status post myocardial infarction. 2. Status post massive nasal bleeding. PLAN: He passed weaning. His x-ray and ABG looked good. We will go ahead and extubate him and observe. Job ID: [id number]
--- NOTE | 2019-12-31 10:14 | PDOC.CPN ---
- Subjective Date: 12/31/19 Time: 10:15 Interval history: The pt seen and examined. No overnight events. No cardiac complaints. - Objective Allergies/Adverse Reactions: Allergies Allergy/AdvReac Type Severity Reaction Status Date / Time No Known Drug Allergies Allergy Unknown Verified 05/22/13 11:28 Visit Medications: Current Medications Acetaminophen (Tylenol) 650 mg PO Q6H PRN PRN Reason: Headache/Fever>100 or Pain1-3 Last Admin: 12/30/19 00:18 Dose: 650 mg Acetaminophen/Codeine Phosphate (Tylenol #3) 1 tab PO Q4H PRN PRN Reason: Mild Pain (1-3) Last Admin: 12/29/19 20:45 Dose: 1 tab Al Hydroxide/Mg Hydroxide (Maalox) 30 ml PO Q3H PRN PRN Reason: Indigestion Albuterol/Ipratropium (Duoneb) 3 ml NEB [id number] [facility] Last Admin: 12/31/19 06:40 Dose: 3 ml Aspirin (Aspirin Chewable) 81 mg PO DAILY [facility] Last Admin: 12/31/19 08:04 Dose: 81 mg Atorvastatin Calcium (Lipitor) 80 mg PO HS [facility] Last Admin: 12/30/19 22:59 Dose: 80 mg Carvedilol (Coreg) 6.25 mg PO BID [facility] Last Admin: 12/31/19 08:05 Dose: 6.25 mg Clopidogrel Bisulfate (Plavix) 75 mg PO DAILY [facility] Last Admin: 12/31/19 08:05 Dose: 75 mg Dextrose/Water (Dextrose 50%) 25 gm SLOW IVP PRN PRN PRN Reason: Hypoglycemia Glucagon (Glucagon) 1 mg IM PRN PRN PRN Reason: Hypoglycemia Dopamine HCl/Dextrose (Dopamine 400 Mg/D5w 250 Ml) 250 mls @ 0 mls/hr IVPB INF LEON Norepinephrine Bitartrate (Levophed) 250 mls @ 0 mls/hr IVPB INF [facility]ON Ceftriaxone Sodium 1 gm/ (Sodium Chloride) 100 mls @ 200 mls/hr IVPB Q24HR [facility] Last Admin: 12/31/19 07:57 Dose: 100 mls Dextrose/Water (D5w) 1,000 mls @ 0 mls/hr IV .Q0M PRN PRN Reason: Hypoglycemia Sodium Chloride (1/2 Normal Saline) 1,000 mls @ 75 mls/hr IV .[id number] [facility] Last Admin: 12/30/19 22:59 Dose: 1,000 mls Insulin Human Regular (Humulin R) 0 units SC .MILD SLIDING SCALE PRN PRN Reason: Mild Correctional Scale Levothyroxine Sodium (Synthroid) 25 mcg PO 0600 [facility] Last Admin: 12/31/19 06:48 Dose: 25 mcg Lisinopril (Zestril) 2.5 mg PO DAILY [facility] Last Admin: 12/31/19 08:04 Dose: 2.5 mg Magnesium Hydroxide (Milk Of Magnesium) 30 ml PO Q12H PRN PRN Reason: Constipation Nitroglycerin (Nitrostat) 0.4 mg SL Q5MIN PRN PRN Reason: Chest Pain Pantoprazole Sodium (Protonix) 40 mg IVP 2100 [facility] Phenylephrine HCl (Omega-Synephrine 0.25% Nasal [place]) 0 ml EA NARE Q4H PRN PRN Reason: NASAL BLEEDING Sodium Chloride (Flush - Normal Saline) 10 ml IVF Q12HR [facility] Last Admin: 12/31/19 08:06 Dose: 10 ml Sodium Chloride (Flush - Normal Saline) 10 ml IVF PRN PRN PRN Reason: Saline Flush Vital Signs & Weight: Vital Signs Temp Pulse Resp BP Pulse Ox 12/31/19 08:05 149/99 H 12/31/19 08:04 106 H 149/99 H 12/31/19 07:35 12 98 12/31/19 06:40 92 19 100 12/31/19 06:37 82 172/78 H 12/31/19 04:00 99.1 F 12/30/19 23:22 97 11 L 100 12/30/19 22:59 110/75 Admit Weight 165 lb Weight 165 lb 9.074 oz - Physical Exam General: alert & oriented x3 HEENT: mucus membranes moist Neck: supple neck Cardiac: regular rate and rhythm, S1/S2 Lungs: clear to auscultation, decreased breath sounds Neuro: cranial nerve 2-12 intact Extremities: no edema - Labs Result Diagrams: 12/31/19 05:06 12/31/19 03:42 Troponin/CKMB Troponin I Greater than 45.000 ng/mL (< 0.028) H* 12/29/19 14:08 - Telemetry Sinus rhythms and dysrhythmias: sinus rhythm - Assessment/Plan Assessment/Plan: 1. S/p Cardiac arrest with intubation - extubated this AM; 2. CAD with s/p LHC on 12/29/2019 with NICOLA x 2 : prox LAD and prox 1st Diag; 50 % stenosis in mid RCA and EF > 60% - On Coreg, Lisinopril; on Statin, ASA and Plavix; 3. Seizure 4. HTN - stable 5. HLD - on Statin 6. DM type 2 - per family, the pt was on some DM med in past; HgbA1c 6.4 today 7. Hypothyroidism - Per family, the pt was on thyroid med in past, but somehow, the med was d/luma. On levothyroxine 25 mcg qd 8. ZO - improved 9. Intellectual disability 10. possible aspiration PNA - on ABX 11. Epistaxis - cont. mild bleeding 12. Elevated LFT MAR reviewed * Echo on 12/29/2019 with EF 60-65%, hypokinetic lateral wall, trace MR and TR Pt. seen and eval. by me. I agree with the A/P by the POUNDMASTER. He is looking a lot better today and we had a conversation. Chest: few rhonchi, RRR, No edema. He should be able to be d/c'd soon from a cardiac standpoint. peak T.I. was 45. The EF post HI is well preserved. He will need to continue his medications.
--- NOTE | 2019-12-31 10:16 | PDOC.HOSPP ---
- Subjective Encounter Date: 12/31/19 Encounter Time: 10:15 Subjective: Mr. Sarmiento was seen today in follow-up of acute STEMI, and epistaxis. He is extubated. He is awake and alert. He denies chest pain or dyspnea. - Objective Vital Signs & Weight: Vital Signs (12 hours) Temp Pulse Resp BP Pulse Ox 12/31/19 08:05 149/99 H 12/31/19 08:04 106 H 149/99 H 12/31/19 07:35 12 98 12/31/19 06:40 92 19 100 12/31/19 06:37 82 172/78 H 12/31/19 04:00 99.1 F 12/30/19 23:22 97 11 L 100 12/30/19 22:59 110/75 Weight Admit Weight 165 lb Weight 165 lb 9.074 oz Most Recent Monitor Data Heart Rate from ECG 110 NIBP 140/86 NIBP BP-Mean 104 Respiration from ECG 13 SpO2 99 I&O: 12/30/19 12/31/19 01/01/20 06:59 06:59 06:59 Intake Total 3178.6 3038.1 Output Total 4810 2163 Balance -1631.4 875.1 Result Diagrams: 12/31/19 05:06 12/31/19 03:42 Additional Labs: Accuchecks 12/30/19 12/30/19 16:21 11:55 POC Glucose 129 H 137 H Hospitalist ROS - Medication Medications: Active Medications Generic Name Dose Route Start Last Admin Trade Name Freq PRN Reason Stop Dose Admin Acetaminophen 650 mg 12/30/19 00:08 12/30/19 00:18 Tylenol PO 650 mg Q6H PRN Administration Headache/Fever>100 or Pain1-3 Acetaminophen/Codeine Phosphate 1 tab 12/29/19 04:35 12/29/19 20:45 Tylenol #3 PO 1 tab Q4H PRN Administration Mild Pain (1-3) Albuterol/Ipratropium 3 ml 12/29/19 07:00 12/31/19 06:40 Duoneb NEB 3 ml [id number] LEON Administration Aspirin 81 mg 12/29/19 09:00 12/31/19 08:04 Aspirin Chewable PO 81 mg DAILY LEON Administration Atorvastatin Calcium 80 mg 12/29/19 21:00 12/30/19 22:59 Lipitor PO 80 mg HS LEON Administration Carvedilol 6.25 mg 12/30/19 09:00 12/31/19 08:05 Coreg PO 6.25 mg BID LEON Administration Clopidogrel Bisulfate 75 mg 12/29/19 09:00 12/31/19 08:05 Plavix PO 75 mg DAILY LEON Administration Ceftriaxone Sodium 1 gm/ 100 mls @ 200 mls/hr 12/30/19 08:00 12/31/19 07:57 Sodium Chloride IVPB 100 mls Q24HR LEON Administration Levothyroxine Sodium 25 mcg 12/29/19 06:00 12/31/19 06:48 Synthroid PO 25 mcg 0600 LEON Administration Lisinopril 2.5 mg 12/29/19 09:00 12/31/19 08:04 Zestril PO 2.5 mg DAILY LEON Administration Sodium Chloride 10 ml 12/29/19 09:00 12/31/19 08:06 Flush - Normal Saline IVF 10 ml Q12HR LEON Administration - Exam Eye: PERRL Heart: RRR, no murmur, no gallops, no rubs, normal peripheral pulses Respiratory: CTAB, no wheezes, no rales, no ronchi, normal chest expansion Gastrointestinal: soft, non-tender, non-distended, normal bowel sounds, no palpable masses Extremities: no cyanosis, no edema Psychiatric: normal affect, A&O x 3 Hosp A/P (1) Aspiration pneumonia Code(s): J69.0 - PNEUMONITIS DUE TO INHALATION OF FOOD AND VOMIT Status: Acute (2) STEMI (ST elevation myocardial infarction) Status: Acute Qualifiers: Qualified Code(s): I21.02 - ST elevation (STEMI) myocardial infarction involving left anterior descending coronary artery (3) Hypothyroidism Code(s): E03.9 - HYPOTHYROIDISM, UNSPECIFIED Status: Chronic Qualifiers: Qualified Code(s): E03.9 - Hypothyroidism, unspecified (4) Intellectual disability Code(s): F79 - UNSPECIFIED INTELLECTUAL DISABILITIES Status: Chronic (5) Dyslipidemia Code(s): E78.5 - HYPERLIPIDEMIA, UNSPECIFIED Status: Chronic - Plan * STEMI- patient is post primary PCI * Continue Carvediolol, aspirin, lipitor * Hypertriglyceridemia- continue lipitor for now, if this persists * Echo results were noted * Seizure- - discussed with his sister. He had seizures when he was a chid, but has not been on any medication since then. Will continue off medication, I suspect this was related to the RI * Aspiration pneumonia- continue Rocephin * Hypothyroidism- he is under-replaced due to non-compliance with medication- Levothyrozine has been re-started * DM- blood glucose is stable
[2019-12-31 11:00] LABS: Troponin I 11.643 ng/mL (< 0.028)
[2019-12-31] MEDS ORDERED: Ondansetron PF 4 MG/2 ML Vial IVP PRN (14:47)
--- NOTE | 2019-12-31 17:43 | EKG ---
Test Reason : Blood Pressure : / mmHG Vent. Rate : 115 BPM Atrial Rate : 115 BPM P-R Int : 186 ms QRS Dur : 110 ms QT Int : 300 ms P-R-T Axes : 094 077 -61 degrees QTc Int : 415 ms Sinus tachycardia Right bundle branch block Abnormal ECG When compared with ECG of 29-DEC-2019 05:01, (Unconfirmed) Fusion complexes are no longer Present QRS duration has decreased Inverted T waves have replaced nonspecific T wave abnormality in Anterior leads Confirmed by DR. James BONNER ([id number]) on 12/31/2019 5:42:52 PM Referred By: JAMILA Confirmed By:DR. James BONNER
[2019-12-31] MEDS: Atorvastatin Calcium 40 MG TAB PO SCH (20:05)
[2019-12-31] MEDS: Pantoprazole 40 MG VIAL IVP SCH (20:06)
[2020-01-01 03:44] LABS: #Basophils 0.1 thou/uL (0.0-0.2); #Eosinphils 0.4 thou/uL (0.0-0.7); #Monocytes 0.7 thou/uL (0.11-0.59); #Neutrophils 6.9 thou/uL (1.40-6.50); %Basophils 0.9 % (0.0-1.0); %Lymphocytes 19.9 % (21.0-51.0); %Monocytes 7.3 % (0.0-10.0); %Neutrophils 67.9 % (42.0-75.0); Hemoglobin 10.6 g/dL (14.0-18.0); Mean Corpuscular HGB CONC 35.3 g/dL (32.0-36.0); Mean Corpuscular Hemoglobin 29.3 pg (27.0-31.0); Mean Corpuscular Volume 83.1 fL (78.0-98.0); Mean Platelet Volume 6.8 fL (7.4-10.4); Platelet Count 223 thou/uL (130-400); RBC Distribution Width 11.6 % (11.5-14.5); Red Blood Cell (RBC) Count 3.62 mill/uL (4.70-6.10); White Blood Cell (WBC) Count 10.1 thou/uL (4.8-10.8)
[2020-01-01 04:01] LABS: Anion Gap 22 mmol/L (10-20); BUN (Urea Nitrogen) 9 mg/dL (8.4-25.7); Calc. Creatinine Clearance 84 mL/min (70-130); Calcium 8.9 mg/dL (7.8-10.44); Carbon Dioxide 18 mmol/L (22-29); Chloride 104 mmol/L (98-107); Estimated GFR-MDRD 71; Glucose 107 mg/dL (70-105); Potassium 3.8 mmol/L (3.5-5.1); Sodium 140 mmol/L (136-145)
[2020-01-01 04:21] LABS: Critical Call Chem Troponin I RESULT DECREASING; Troponin I 7.658 ng/mL (< 0.028)
[2020-01-01] MEDS: Levothyroxine Sodium 25 MCG TAB PO SCH (06:15)
[2020-01-01] MEDS: Clopidogrel Bisulfate 75 MG TAB PO SCH (08:28)
[2020-01-01] MEDS: Carvedilol 6.25 MG TAB PO SCH ×2 (08:28→20:28)
[2020-01-01] MEDS: Aspirin Chewable 81 MG TAB PO SCH (08:28)
[2020-01-01] MEDS: Lisinopril 2.5 MG TAB PO SCH (08:28)
[2020-01-01] MEDS: cefTRIAXone\\ROCEPHIN 1 GM in Sodium Chloride 0.9% 100 ML IVPB SCH (08:29)
--- NOTE | 2020-01-01 09:22 | PRG ---
DATE OF SERVICE: 01/01/2020 SUBJECTIVE: The patient is doing well. He has moved out of ICU yesterday. He has no acute complaints. OBJECTIVE: VITAL SIGNS: Temperature is 97.2, pulse 61, and blood pressure 124/73. HEENT: Unremarkable. NECK: No JVD. CHEST: Clear without wheezing or rhonchi. CARDIAC: S1, S2. Regular. ABDOMEN: Soft. EXTREMITIES: No edema. LABORATORY DATA: White blood cell count 10, hematocrit 30, and platelet count 223. Sodium 140, potassium 3.8, BUN 9, creatinine 1.1, glucose 107, and troponin 7.6. ASSESSMENT: 1. Status post myocardial infarction. 2. Status post coronary stent placement. 3. Status post respiratory failure, requiring mechanical ventilation. 4. Status post nasal bleeding. PLAN: Pulmonary issues were resolved. He has been extubated. He has done well for the last 24 hours. I will go ahead and stop his antibiotics since he does not appear to be infected. He can be transferred out to telemetry floor. Hopefully home soon. Pulmonary will sign off. Please recall if further assistance is needed. Job ID: [id number]
--- NOTE | 2020-01-01 10:20 | PDOC.HOSPP ---
- Subjective Encounter Date: 01/01/20 Encounter Time: 10:19 Subjective: Mr. Sarmiento was seen today in follow-up of Acute ID. He is laying in bed and appears comfortable. He denies chest pain or difficulty breathing. - Objective Vital Signs & Weight: Vital Signs (12 hours) Temp Pulse Resp BP Pulse Ox 01/01/20 08:28 78 126/81 01/01/20 07:49 70 16 93 L 01/01/20 07:23 97.9 F 01/01/20 03:43 97.2 F L 01/01/20 00:58 94 L 12/31/19 23:13 98.4 F Weight Admit Weight 165 lb Weight 165 lb 9.074 oz Most Recent Monitor Data Heart Rate from ECG 87 NIBP 119/80 NIBP BP-Mean 93 Respiration from ECG 19 SpO2 94 I&O: 12/31/19 01/01/20 01/02/20 06:59 06:59 06:59 Intake Total 3038.1 968 Output Total 2163 3220 Balance 875.1 -2252 Result Diagrams: 01/01/20 03:25 01/01/20 03:25 Additional Labs: Accuchecks 01/01/20 12/31/19 12/31/19 05:31 19:59 16:19 POC Glucose 103 150 H 125 H 12/31/19 11:24 POC Glucose 128 H Hospitalist ROS - Medication Medications: Active Medications Generic Name Dose Route Start Last Admin Trade Name Freq PRN Reason Stop Dose Admin Acetaminophen 650 mg 12/30/19 00:08 12/30/19 00:18 Tylenol PO 650 mg Q6H PRN Administration Headache/Fever>100 or Pain1-3 Acetaminophen/Codeine Phosphate 1 tab 12/29/19 04:35 12/29/19 20:45 Tylenol #3 PO 1 tab Q4H PRN Administration Mild Pain (1-3) Albuterol/Ipratropium 3 ml 12/29/19 07:00 01/01/20 07:49 Duoneb NEB 3 ml [id number] LEON Administration Aspirin 81 mg 12/29/19 09:00 01/01/20 08:28 Aspirin Chewable PO 81 mg DAILY LEON Administration Atorvastatin Calcium 80 mg 12/29/19 21:00 12/31/19 20:05 Lipitor PO 80 mg HS LEON Administration Carvedilol 6.25 mg 12/30/19 09:00 01/01/20 08:28 Coreg PO 6.25 mg BID LEON Administration Clopidogrel Bisulfate 75 mg 12/29/19 09:00 01/01/20 08:28 Plavix PO 75 mg DAILY LEON Administration Levothyroxine Sodium 25 mcg 12/29/19 06:00 01/01/20 06:15 Synthroid PO 25 mcg 0600 LEON Administration Lisinopril 2.5 mg 12/29/19 09:00 01/01/20 08:28 Zestril PO 2.5 mg DAILY LEON Administration Ondansetron HCl 4 mg 12/31/19 14:47 12/31/19 16:48 Zofran IVP 4 mg Q6H PRN Administration Nausea/Vomiting Pantoprazole Sodium 40 mg 12/31/19 21:00 12/31/19 20:06 Protonix IVP 40 mg 2100 LEON Administration Sodium Chloride 10 ml 12/29/19 09:00 01/01/20 08:30 Flush - Normal Saline IVF 10 ml Q12HR LEON Administration - Exam Eye: PERRL, anicteric sclera Heart: RRR, no murmur, no gallops, no rubs, normal peripheral pulses Respiratory: CTAB, no wheezes, no rales, no ronchi, normal chest expansion Gastrointestinal: soft, non-tender, non-distended, normal bowel sounds, no palpable masses, no hepatomegaly Extremities: no cyanosis, no edema Hosp A/P (1) Aspiration pneumonia Code(s): J69.0 - PNEUMONITIS DUE TO INHALATION OF FOOD AND VOMIT Status: Acute Qualifiers: Aspiration pneumonia type: due to regurgitated food Laterality: bilateral (2) STEMI (ST elevation myocardial infarction) Status: Acute Qualifiers: Involved coronary artery: LAD coronary artery Qualified Code(s): I21.02 - ST elevation (STEMI) myocardial infarction involving left anterior descending coronary artery (3) Hypothyroidism Code(s): E03.9 - HYPOTHYROIDISM, UNSPECIFIED Status: Chronic Qualifiers: Hypothyroidism type: unspecified Qualified Code(s): E03.9 - Hypothyroidism , unspecified (4) Intellectual disability Code(s): F79 - UNSPECIFIED INTELLECTUAL DISABILITIES Status: Chronic (5) Dyslipidemia Code(s): E78.5 - HYPERLIPIDEMIA, UNSPECIFIED Status: Chronic (6) Diabetes mellitus type 2 in nonobese Code(s): E11.9 - TYPE 2 DIABETES MELLITUS WITHOUT COMPLICATIONS Status: Chronic (7) Hypertension Code(s): I10 - ESSENTIAL (PRIMARY) HYPERTENSION Status: Chronic - Plan * STEMI- patient is post primary PCI * Continue Carvediolol, aspirin, lipitor * Hypertriglyceridemia- continue lipitor for now, if this persists * Aspiration pneumonia-agree with discontinuing antibiotics * Hypothyroidism- continue Levothyroxine * HTN- blood pressure is stable * DM- blood glucose is stable
--- NOTE | 2020-01-01 11:50 | PDOC.CPN ---
- Subjective Date: 01/01/20 Time: 11:57 Interval history: The pt seen and examined. No overnight events. No cardiac complaints. - Objective Allergies/Adverse Reactions: Allergies Allergy/AdvReac Type Severity Reaction Status Date / Time No Known Drug Allergies Allergy Unknown Verified 05/22/13 11:28 Visit Medications: Current Medications Acetaminophen (Tylenol) 650 mg PO Q6H PRN PRN Reason: Headache/Fever>100 or Pain1-3 Last Admin: 12/30/19 00:18 Dose: 650 mg Acetaminophen/Codeine Phosphate (Tylenol #3) 1 tab PO Q4H PRN PRN Reason: Mild Pain (1-3) Last Admin: 12/29/19 20:45 Dose: 1 tab Al Hydroxide/Mg Hydroxide (Maalox) 30 ml PO Q3H PRN PRN Reason: Indigestion Albuterol/Ipratropium (Duoneb) 3 ml NEB [id number] [facility] Last Admin: 01/01/20 07:49 Dose: 3 ml Aspirin (Aspirin Chewable) 81 mg PO DAILY [facility] Last Admin: 01/01/20 08:28 Dose: 81 mg Atorvastatin Calcium (Lipitor) 80 mg PO HS [facility] Last Admin: 12/31/19 20:05 Dose: 80 mg Carvedilol (Coreg) 6.25 mg PO BID [facility] Last Admin: 01/01/20 08:28 Dose: 6.25 mg Clopidogrel Bisulfate (Plavix) 75 mg PO DAILY [facility] Last Admin: 01/01/20 08:28 Dose: 75 mg Dextrose/Water (Dextrose 50%) 25 gm SLOW IVP PRN PRN PRN Reason: Hypoglycemia Glucagon (Glucagon) 1 mg IM PRN PRN PRN Reason: Hypoglycemia Dopamine HCl/Dextrose (Dopamine 400 Mg/D5w 250 Ml) 250 mls @ 0 mls/hr IVPB INF [facility] Dextrose/Water (D5w) 1,000 mls @ 0 mls/hr IV .Q0M PRN PRN Reason: Hypoglycemia Insulin Human Regular (Humulin R) 0 units SC .MILD SLIDING SCALE PRN PRN Reason: Mild Correctional Scale Levothyroxine Sodium (Synthroid) 25 mcg PO 0600 [facility] Last Admin: 01/01/20 06:15 Dose: 25 mcg Lisinopril (Zestril) 2.5 mg PO DAILY [facility] Last Admin: 01/01/20 08:28 Dose: 2.5 mg Magnesium Hydroxide (Milk Of Magnesium) 30 ml PO Q12H PRN PRN Reason: Constipation Nitroglycerin (Nitrostat) 0.4 mg SL Q5MIN PRN PRN Reason: Chest Pain Ondansetron HCl (Zofran) 4 mg IVP Q6H PRN PRN Reason: Nausea/Vomiting Last Admin: 12/31/19 16:48 Dose: 4 mg Pantoprazole Sodium (Protonix) 40 mg IVP 2100 LEON Last Admin: 12/31/19 20:06 Dose: 40 mg Phenylephrine HCl (Omega-Synephrine 0.25% Nasal [place]) 0 ml EA NARE Q4H PRN PRN Reason: NASAL BLEEDING Sodium Chloride (Flush - Normal Saline) 10 ml IVF Q12HR LEON Last Admin: 01/01/20 08:30 Dose: 10 ml Sodium Chloride (Flush - Normal Saline) 10 ml IVF PRN PRN PRN Reason: Saline Flush Vital Signs & Weight: Vital Signs Temp Pulse Resp BP Pulse Ox 01/01/20 11:26 97.6 F 01/01/20 08:28 78 126/81 01/01/20 08:00 94 L 01/01/20 07:49 70 16 93 L 01/01/20 07:23 97.9 F 01/01/20 03:43 97.2 F L 01/01/20 00:58 94 L Admit Weight 165 lb Weight 165 lb 9.074 oz - Physical Exam General: alert & oriented x3 HEENT: mucus membranes moist Neck: supple neck Cardiac: regular rate and rhythm, S1/S2 Lungs: clear to auscultation Extremities: no edema - Labs Result Diagrams: 01/01/20 03:25 01/01/20 03:25 Troponin/CKMB Troponin I 7.658 ng/mL (< 0.028) H* 01/01/20 03:25 - Telemetry Sinus rhythms and dysrhythmias: sinus rhythm - Assessment/Plan Assessment/Plan: 1. S/p Cardiac arrest with intubation - stable with RA 2. CAD with s/p LHC on 12/29/2019 with NICOLA x 2 in prox LAD and prox 1st Diag; 50 % stenosis in mid RCA and EF > 60% - On Coreg, Lisinopril, Statin, ASA and Plavix; 3. Seizure 4. HTN - stable 5. HLD - on Statin 6. DM type 2 - per family, the pt was on some DM med in past; HgbA1c 6.4 today; will start Metformin 500mg qd and the pt will f/u with his PCP for further DM management 7. Hypothyroidism - Per family, the pt was on thyroid med in past, but somehow, the med was d/luma. On levothyroxine 25 mcg qd 8. ZO - improved 9. Intellectual disability 10. possible aspiration PNA - on ABX 11. Epistaxis - no more bleeding 12. Elevated LFT 13. Hypertriglyceridemia - he started statin since this hospitalization; will check his Lipid in 3 months and may start hypertriglyceridemia med (ex Vascepa or Zetia) MAR reviewed * Echo on 12/29/2019 with EF 60-65%, hypokinetic lateral wall, trace MR and TR * From Cardiac standpoint, the pt is stable to d/c home once the pt is cleared by PT eval * The pt will f/u with Dr Conner' office in 2 wks (by telemedicine) Pt. seen and eval. by me. I agree with the A/P by the [employer]. He was walking today without difficulty. Chest clear. RRR. no edema.The cardiac status is stable. He will need to continue medications for the drug eluting stents for 1 year. He will need aggressive risk factor modification. He can be d/c'd to home tomorrow if he remains stable. michael
[2020-01-01] MEDS: Atorvastatin Calcium 40 MG TAB PO SCH (20:28)
[2020-01-01] MEDS: Pantoprazole 40 MG VIAL IVP SCH (20:28)
[2020-01-02] MEDS: Levothyroxine Sodium 25 MCG TAB PO SCH (04:10)
[2020-01-02 04:18] LABS: #Basophils 0.1 thou/uL (0.0-0.2); #Eosinphils 0.5 thou/uL (0.0-0.7); #Lymphocytes 1.9 thou/uL (1.20-3.40); #Neutrophils 7.7 thou/uL (1.40-6.50); %Basophils 0.9 % (0.0-1.0); %Eosinophils 4.6 % (0.0-10.0); %Lymphocytes 16.7 % (21.0-51.0); %Monocytes 8.9 % (0.0-10.0); Hemoglobin 12.2 g/dL (14.0-18.0); Mean Corpuscular HGB CONC 35.1 g/dL (32.0-36.0); Mean Corpuscular Hemoglobin 29.4 pg (27.0-31.0); Mean Corpuscular Volume 83.6 fL (78.0-98.0); Mean Platelet Volume 6.6 fL (7.4-10.4); Platelet Count 311 thou/uL (130-400); RBC Distribution Width 11.8 % (11.5-14.5); Red Blood Cell (RBC) Count 4.14 mill/uL (4.70-6.10); White Blood Cell (WBC) Count 11.1 thou/uL (4.8-10.8)
[2020-01-02 04:52] LABS: Anion Gap 16 mmol/L (10-20); BUN (Urea Nitrogen) 15 mg/dL (8.4-25.7); Calc. Creatinine Clearance 94 mL/min (70-130); Calcium 9.3 mg/dL (7.8-10.44); Carbon Dioxide 21 mmol/L (22-29); Chloride 103 mmol/L (98-107); Estimated GFR-MDRD 80; Glucose 111 mg/dL (70-105); Potassium 3.7 mmol/L (3.5-5.1); Sodium 136 mmol/L (136-145)
[2020-01-02] MEDS ORDERED: metFORMIN 500 MG TAB PO SCH (08:00)
[2020-01-02] MEDS: Carvedilol 6.25 MG TAB PO SCH (08:07)
[2020-01-02] MEDS: Clopidogrel Bisulfate 75 MG TAB PO SCH (08:07)
[2020-01-02] MEDS: Lisinopril 2.5 MG TAB PO SCH (08:07)
[2020-01-02] MEDS: Aspirin Chewable 81 MG TAB PO SCH (08:07)
--- NOTE | 2020-01-02 09:54 | PDOC.HOSPP ---
- Subjective Encounter Date: 01/02/20 Encounter Time: 09:53 Subjective: Mr. Sarmiento was seen today in follow-up of acute [place]. He says he is feeling fine. He denies chest pain or trouble breathing. - Objective Vital Signs & Weight: Vital Signs (12 hours) Temp Pulse Resp BP Pulse Ox 01/02/20 08:07 73 01/02/20 07:48 95 01/02/20 07:41 96.2 F L 73 16 129/86 95 01/02/20 06:30 87 17 01/02/20 04:00 98.1 F 83 20 137/86 94 L 01/01/20 23:28 65 129/78 01/01/20 23:21 78 16 94 L Weight Admit Weight 165 lb 9.074 oz Weight 165 lb 9.074 oz Most Recent Monitor Data Heart Rate from ECG 82 NIBP 117/83 NIBP BP-Mean 94 Respiration from ECG 17 SpO2 92 I&O: 01/01/20 01/02/20 01/03/20 06:59 06:59 06:59 Intake Total 968 240 Output Total 3220 700 Balance -2252 -460 Result Diagrams: 01/02/20 04:08 01/02/20 04:08 Additional Labs: Accuchecks 01/02/20 01/01/20 01/01/20 05:26 20:14 17:56 POC Glucose 110 114 H 103 01/01/20 10:42 POC Glucose 119 H Hospitalist ROS - Medication Medications: Active Medications Generic Name Dose Route Start Last Admin Trade Name Freq PRN Reason Stop Dose Admin Acetaminophen 650 mg 12/30/19 00:08 12/30/19 00:18 Tylenol PO 650 mg Q6H PRN Administration Headache/Fever>100 or Pain1-3 Acetaminophen/Codeine Phosphate 1 tab 12/29/19 04:35 12/29/19 20:45 Tylenol #3 PO 1 tab Q4H PRN Administration Mild Pain (1-3) Albuterol/Ipratropium 3 ml 12/29/19 07:00 01/02/20 06:30 Duoneb NEB 3 ml [id number] LEON Administration Aspirin 81 mg 12/29/19 09:00 01/02/20 08:07 Aspirin Chewable PO 81 mg DAILY LEON Administration Atorvastatin Calcium 80 mg 12/29/19 21:00 01/01/20 20:28 Lipitor PO 80 mg HS LEON Administration Carvedilol 6.25 mg 12/30/19 09:00 01/02/20 08:07 Coreg PO 6.25 mg BID LEON Administration Clopidogrel Bisulfate 75 mg 12/29/19 09:00 01/02/20 08:07 Plavix PO 75 mg DAILY LEON Administration Levothyroxine Sodium 25 mcg 12/29/19 06:00 01/02/20 04:10 Synthroid PO 25 mcg 0600 LEON Administration Lisinopril 2.5 mg 12/29/19 09:00 01/02/20 08:07 Zestril PO 2.5 mg DAILY LEON Administration Metformin HCl 500 mg 01/02/20 08:00 01/02/20 08:07 Glucophage PO 500 mg QAM-WM LEON Administration Ondansetron HCl 4 mg 12/31/19 14:47 12/31/19 16:48 Zofran IVP 4 mg Q6H PRN Administration Nausea/Vomiting Pantoprazole Sodium 40 mg 12/31/19 21:00 01/01/20 20:28 Protonix IVP 40 mg 2100 LEON Administration Sodium Chloride 10 ml 12/29/19 09:00 01/02/20 08:07 Flush - Normal Saline IVF 10 ml Q12HR LEON Administration - Exam Eye: PERRL, anicteric sclera Heart: RRR, no murmur, no gallops, no rubs, normal peripheral pulses Respiratory: CTAB, no wheezes, no rales, no ronchi, normal chest expansion Gastrointestinal: soft, non-tender, non-distended, normal bowel sounds Extremities: no cyanosis, no edema Hosp A/P (1) Aspiration pneumonia Code(s): J69.0 - PNEUMONITIS DUE TO INHALATION OF FOOD AND VOMIT Status: Acute Qualifiers: Aspiration pneumonia type: due to regurgitated food Laterality: bilateral (2) STEMI (ST elevation myocardial infarction) Status: Acute Qualifiers: Involved coronary artery: LAD coronary artery Qualified Code(s): I21.02 - ST elevation (STEMI) myocardial infarction involving left anterior descending coronary artery (3) Hypothyroidism Code(s): E03.9 - HYPOTHYROIDISM, UNSPECIFIED Status: Chronic Qualifiers: Hypothyroidism type: unspecified Qualified Code(s): E03.9 - Hypothyroidism , unspecified (4) Intellectual disability Code(s): F79 - UNSPECIFIED INTELLECTUAL DISABILITIES Status: Chronic (5) Dyslipidemia Code(s): E78.5 - HYPERLIPIDEMIA, UNSPECIFIED Status: Chronic (6) Diabetes mellitus type 2 in nonobese Code(s): E11.9 - TYPE 2 DIABETES MELLITUS WITHOUT COMPLICATIONS Status: Chronic (7) Hypertension Code(s): I10 - ESSENTIAL (PRIMARY) HYPERTENSION Status: Chronic - Plan * STEMI- patient is post primary PCI * Continue Carvediolol, aspirin, lipitor * Hypothyroidism- continue Levothyroxine * HTN- blood pressure is stable * DM- blood glucose is stable * Patient appears clinically stable * Home when OK by Cardiology
[2020-01-02 12:16] VITALS: BP 121/87; TEMP 97.8
--- NOTE | 2020-01-02 17:28 | PDOC.CPN ---
- Subjective Date: 01/02/20 Time: 14:00 Interval history: He is doing well. No angina no SOB. - Review of Systems General: denies: fever/chills, weight/appetite/sleep changes, night sweats, fatigue Respiratory: denies: cough, congestion, shortness of breath, exercise intolerance Cardiovascular: denies: chest pain, palpitation, edema, paroxysmal nocturnal dyspnea, orthopnea Gastrointestinal: denies: nausea, vomiting, diarrhea, constipation, abd pain, GI bleeding Musculoskeletal: denies: pain, tenderness, stiffness, swelling, arthritis/ arthralgias Neurological: denies: numbness, syncope, seizure, weakness - Objective Allergies/Adverse Reactions: Allergies Allergy/AdvReac Type Severity Reaction Status Date / Time No Known Drug Allergies Allergy Unknown Verified 05/22/13 11:28 Vital Signs & Weight: Vital Signs Temp Pulse Resp BP Pulse Ox 01/02/20 12:00 97.8 F 97 17 121/87 95 01/02/20 08:07 73 01/02/20 07:48 95 01/02/20 07:41 96.2 F L 73 16 129/86 95 01/02/20 06:30 87 17 Admit Weight 165 lb 9.074 oz Weight 165 lb 9.074 oz - Physical Exam General: alert & oriented x3 HEENT: mucus membranes moist Neck: supple neck Cardiac: regular rate and rhythm Lungs: clear to auscultation Neuro: grossly intact Abdomen: active bowel sounds Extremities: no edema Skin: clear Musculoskeletal: no pain - Labs Result Diagrams: 01/02/20 04:08 01/02/20 04:08 Troponin/CKMB Troponin I 7.658 ng/mL (< 0.028) H* 01/01/20 03:25 - Telemetry Sinus rhythms and dysrhythmias: sinus rhythm - Assessment/Plan Assessment/Plan: 1. S/p Cardiac arrest. 2. S/P PCi to LAD and Diagonal. 3. Seizure 4. HTN 5. HLD 6. DM type 2 7. Hypothyroidism 8. ZO - improved PLAN: - Stable for discharge - Follow up with Dr Conner in 2-4 wks.
--- NOTE | 2020-01-02 18:49 | DIS ---
DATE OF ADMISSION: 12/29/2019 DATE OF DISCHARGE: 01/02/2020 PRIMARY CARE PHYSICIAN: [facility], Zachary Jenkins MD DISCHARGE DISPOSITION: Home. DISCHARGE DIAGNOSES: 1. Acute ST-segment elevated myocardial infarction. 2. Seizure disorder. 3. History of mental retardation. 4. Hypertension. 5. Hypercholesterolemia. 6. Hypertriglyceridemia. 7. Gastroesophageal reflux disease. 8. Hypothyroidism. DISCHARGE MEDICATIONS: Include; 1. Metformin 500 mg p.o. daily. 2. Levothyroxine 25 mcg p.o. daily. 3. Plavix 75 mg p.o. daily. 4. Lipitor 80 mg at bedtime. 5. Aspirin 81 mg a day. 6. Metoprolol 25 mg p.o. b.i.d. 7. Lisinopril 10 mg p.o. daily. IMAGING AND PROCEDURES DONE DURING THE HOSPITAL STAY: The patient had a cardiac catheterization, in which the patient was found to have multivessel coronary artery disease and had successful placement of a drug-eluting stent to the proximal LAD and the 1st diagonal. The patient had 50% mid RCA blockage. The patient also had an echocardiogram, in which the ejection fraction was estimated at 60% to 65%. There was a lateral wall hypokinesis. CODE STATUS: Full code. ALLERGIES: NO KNOWN DRUG ALLERGIES. HOSPITAL COURSE: Mr. Sarmiento is a pleasant 54-year-old gentleman, who was in his usual state of health until the night of admission. He had woken up with chest pain and nausea and vomiting. His sister who is also his superintendent [employer] called 911 and he was brought to the hospital. He suffered a seizure once arriving to the hospital. He also was found to have an ST-segment elevated MT. Cardiology was consulted and he went immediately to the stores laborer, where he was found to have multivessel coronary artery disease and had a successful drug-eluting stent placed to the LAD as well as the 1st diagonal. He developed epistaxis as a result of the anticoagulants used in his cardiac treatment. Hemostasis was achieved with packing. The patient required intubation shortly during his hospital stay, but improved dramatically and quickly after being started on cardiac medications. He was also found to be under replaced with regard to his thyroid hormone. This was likely due to medical noncompliance. The need for him to stay on all of his medications including the aspirin and Plavix was firmly stressed. His sister was at the bedside when this was done. She states that she plans to put his medications and pill bottles and help him with his administration. The patient was currently stable at the time of discharge and is to follow up with his primary care physician in 1 to 2 weeks and [address] with Dr[address] Conner as instructed. Job ID: [id number]
== END 2020-01-02 14:30 | disposition home or self-care (01) | DRG 246 ==
LOC: ERS 02:22 → CCL 02:39 → CCU 04:48 → IMCU/EMU 12-31 16:44 → 2NO 01-01 11:57
PROVIDERS: ADMIT Internal Medicine Cardiovascular Disease; ATTEND Internal Medicine Cardiovascular Disease
PROC: 027135Z Dilation of Coronary Artery, Two Arteries with Two Drug-eluting Intraluminal Devices, Percutaneous Approach (ICD-10-PCS; principal; 2019-12-29)
PROC: 4A023N7 Measurement of Cardiac Sampling and Pressure, Left Heart, Percutaneous Approach (ICD-10-PCS; 2019-12-29)
PROC: B2111ZZ Fluoroscopy of Multiple Coronary Arteries using Low Osmolar Contrast (ICD-10-PCS; 2019-12-29)
DX: I21.3 ST elevation (STEMI) myocardial infarction of unspecified site (principal); I49.01 Ventricular fibrillation; J96.01 Acute respiratory failure with hypoxia; J96.02 Acute respiratory failure with hypercapnia; J69.0 Pneumonitis due to inhalation of food and vomit; I46.2 Cardiac arrest due to underlying cardiac condition; N17.9 Acute kidney failure, unspecified; E87.2 Acidosis; G40.909 Epilepsy, unspecified, not intractable, without status epilepticus; F79 Unspecified intellectual disabilities; I10 Essential (primary) hypertension; E78.00 Pure hypercholesterolemia, unspecified; E78.1 Pure hyperglyceridemia; K21.9 Gastro-esophageal reflux disease without esophagitis; E03.9 Hypothyroidism, unspecified; R04.0 Epistaxis; I25.10 Atherosclerotic heart disease of native coronary artery without angina pectoris; E78.5 Hyperlipidemia, unspecified; E11.65 Type 2 diabetes mellitus with hyperglycemia; Z79.4 Long term (current) use of insulin
CPT/HCPCS: 36415; 36416; 71045; 80048; 80053; 80061; 82805; 83036; 84439; 84443; 84484; 85025; 85347; 92928; 92929; 93005; 93010; 93306; 93458; 94002; 94003; 94640; 94799; 96365; 96366; 97139; 99152; C1874; C9113; C9600; C9601; J0696; J1644; J1956; J2060; J2250; J2405; J2704; J2920; J3010; J3490; J7620